=== PATIENT | female | born 1940 | race Caucasian/White ===

== ENCOUNTER → 2016-11-01 | Outpatient (CLI) | payer MEDICARE, OTHER ==
[~2016-11-01] MED LIST: CALCIUM 600 +1 EAC7 PO; COLACE100 MG PO; DELTASONE1 MG PO; ECOTRIN325 MG PO; LEVOTHROID (S125 MCG PO; MIRALAX17 GM PO; NEURONTIN300 MG PO; NORCO 10-325 T1 EACH PO; NORCO 5-325 TA1 EACH PO; OSTEO BI-FLEX1 EACH PO; PREDNISONE5 MG PO; PRESERVISION A1 EACH PO; PREVACID30 M1 PO; PRINIVIL (ZESTR20 MG PO; SINGULAIR10 MG PO; THERA-VITE W/ B1 TAB PO; VESICARE10 MG PO; VITAMIN D-32000 UNI1 PO; ZOCOR40 MG PO
== END | disposition disaster alternative care site (69) ==
LOC: GBCOE 09:30
DX: M81.0 Age-related osteoporosis without current pathological fracture (principal); M85.832 Other specified disorders of bone density and structure, left forearm

== ENCOUNTER 2017-02-22 10:00 | Inpatient (IN) | payer MEDICARE, OTHER ==
[~2017-02-22] VITALS: Ht 154.9 cm; Wt 59.6 kg
--- NOTE | ~2017-02-22 | OR ---
PATIENT'S NAME: [facility] AGE: 76 Y [address] ROOM: [place] [address] LOCATION: [facility] ADMIT DATE: 03/01/2017 OR/Procedure Report DISCHARGE DATE: FAMILY PHYSICIAN: GAUDENCIO LINDSAY MD ATTENDING PHYSICIAN: BEE ROBERTS SURGEON: Bee Roberts MD FREELANCE GRAPHIC DESIGNER: 1. Keith Condon PA-C. 2. Cornelio Alarcon CST/FIRING PIN GAUGER. DATE OF PROCEDURE: 03/01/2017 PRE-OP DIAGNOSIS: Degenerative joint disease right knee. POST-OP DIAGNOSIS: Degenerative joint disease right knee. OPERATION: Right total knee arthroplasty with computer navigation. ANESTHESIA: Spinal anesthesia plus adductor canal block plus periarticular local anesthesia (ropivacaine with epinephrine and Toradol). ESTIMATED BLOOD LOSS: Less than 10 mL. DRAIN: None. SPECIMEN: None. COMPLICATIONS: None. IMPLANT SYSTEM: Renetta Triathlon Size 5 right posterior stabilized femoral component Size 4 universal modular tibial baseplate 11 mm posterior stabilized size 4 X3 tibial polyethylene insert 32 mm Oval X3 patella component (triple pegged). INDICATIONS FOR SURGERY: Ania is a 76-year-old female, who presents with advanced right knee degenerative joint disease and associated severely compromised activities of daily living. The patient has decided to proceed with knee replacement after having been thoroughly counseled regarding the associated risks, benefits, and limitations. We have specifically reviewed the risks and implications of infection, deep venous thrombosis, pulmonary embolism, mortality, neurovascular complications, blood transfusion (and associated potential for disease transmission or transfusion reaction), stiffness, instability, mechanical deterioration of the components (due to wear and or loosening), and the potential need for revision. We have also emphasized the importance of active involvement and compliance with post- operative physical therapy as a means of optimizing range of motion and PATIENT'S NAME: [facility] AGE: 76 Y [address] ROOM: [place] [id number] LOCATION: [facility] ADMIT DATE: 03/01/2017 OR/Procedure Report DISCHARGE DATE: FAMILY PHYSICIAN: GAUDENCIO LINDSAY MD ATTENDING PHYSICIAN: BEE ROBERTS functional recovery. Informed consent has been granted. DESCRIPTION OF PROCEDURE: The patient was positioned supine after administration of anesthesia and prophylactic antibiotics. A well-padded pneumatic tourniquet was placed around the right proximal thigh, and the right lower extremity was prepped and draped with vigilant sterile technique. The patient's name as well as the intended operative side and procedure were confirmed with a verbal time-out involving myself, the circulating nurse, the scrub nurse, and the anesthesiologist. Examination under anesthesia demonstrated a large effusion. There was no erythema. There was no abnormal warmth. There were no active skin lesions or masses. Range of motion under anesthesia was from full extension to 130 degrees of flexion. There was no ligamentous insufficiency. The right lower extremity was elevated and exsanguinated with an Esmarch wrap, and the pneumatic tourniquet was inflated to 300 mmHg. The knee was approached through a longitudinal midline incision. A medial parapatellar arthrotomy was performed and the patella was everted. Examination of the joint space demonstrated a large amount of benign-appearing translucent synovial fluid. There were no loose bodies. The cruciate ligaments were intact. There was full-thickness loss of articular cartilage throughout 90% of the femoral trochlea as well as the entire patella as well as 90% of the medial femoral condyle and the anteromedial 60% of the medial tibial plateau. There was deep erosion of subchondral bone from the lateral two-thirds of the patella with longitudinal striations of eburnated bone yielding a corduroy pattern at the femoral trochlea and the patella. The residual thickness of the lateral facet of the patella measured only 6 mm with a caliper, and the residual thickness of the medial half of the patella measured 14 mm thick. There was extensive chondrocalcinosis at the lateral femoral condyle and moderate chondrocalcinosis at the lateral tibial plateau and lateral meniscus. There was full-thickness fissuring at the medial aspect of the lateral tibial plateau. There was a moderate-sized osteophyte at the lateral tibial plateau. There was extensive maceration of the remnant of the medial meniscus. There was extensive inner perimeter tearing of the lateral meniscus in addition to extensive chondrocalcinosis at the lateral meniscus. Remnants of the menisci and cruciate ligaments were excised. The [employer] navigation femoral tracker was pinned in place at the distal aspect of the femoral trochlea. Absence of motion between the femur and the tracking device was confirmed manually and visually. Femoral osseous landmarks were obtained in order to calibrate the computer navigation system. Landmarks included the center of rotation of the ipsilateral hip, the center-point of the distal femur, the femoral AP axis, 57 points on the medial femoral condyle PATIENT'S NAME: [facility] AGE: 76 Y [address] ROOM: [address] [address] LOCATION: [facility] ADMIT DATE: 03/01/2017 OR/Procedure Report DISCHARGE DATE: FAMILY PHYSICIAN: GAUDENCIO LINDSAY MD ATTENDING PHYSICIAN: BEE ROBERTS articular surface, and 57 points on the lateral femoral condyle articular surface. The [employer] computer navigation system was subsequently utilized to position the distal femoral resection block such that the distal femoral resection was performed perfectly perpendicular to the femoral mechanical axis. The distal femoral resection was performed with a [employer]arm[employer] oscillating saw. The [employer] computer navigation tibial tracker was pinned in place at the anterior aspect of the tibial plateau. Absence of motion between the tibia and the tracking device was confirmed manually and visually. Tibial osseous landmarks were obtained in order to calibrate the computer navigation system. Landmarks included the center-point of the tibial plateau, the AP tibial axis, 57 points on the medial tibial plateau articular surface, 57 points on the lateral tibial plateau articular surface, the medial malleolus, and the lateral malleolus. The [employer] computer navigation system was subsequently utilized to position the proximal tibial resection block such that the proximal tibial resection was performed perfectly perpendicular to the tibial mechanical axis. The proximal tibial resection was performed with a SwarmBuild oscillating saw. Perpendicularity of the tibial resection with respect to the tibial shaft axis was reconfirmed by inserting a spacer- block attached to an extramedullary guide paolo. External rotation of the anterior and posterior femoral resections was set parallel to the epicondylar axis and carefully adjusted in order to create a rectangular flexion gap. The box resection was performed with a reciprocating saw. Anterior and posterior chamfer resections were performed with the oscillating saw. Posterior condyle osteophytes were excised with an osteotome. All other osteophytes were excised with a rongeur. Resection of all remnants of the menisci was reconfirmed. Flexion and extension gaps were confirmed to be symmetric and well balanced with a spacer-block technique. The patella resection was performed with an oscillating saw such that the composite thickness of the reconstructed patella was equivalent to the thickness of the chitina patella. Patella tracking was confirmed to be optimal. A limited lateral retinacular release was required in order to optimize patella tracking. There was a 1 mm ossicle adherent to the lateral retinaculum, and this was excised. All trial components were removed and all prepared osseous surfaces were thoroughly irrigated with pulsatile saline lavage and dried prior to cementing all three components in a single stage using [employer] Simplex cement containing pre-mixed tobramycin. All extruded excess cement was removed. The entire joint space was thoroughly inspected and thoroughly irrigated with bacteriostatic pulsatile saline lavage to assure that there was no residual debris of any sort. PATIENT'S NAME: [facility] AGE: 76 Y [address] ROOM: [address] [address] LOCATION: [facility] ADMIT DATE: 03/01/2017 OR/Procedure Report DISCHARGE DATE: FAMILY PHYSICIAN: GAUDENCIO LINDSAY MD ATTENDING PHYSICIAN: BEE ROBERTS Final range of motion was from full extension (with no passive hyperextension) to 130 degrees of flexion. Patella tracking was reconfirmed to be optimal. There was excellent anteroposterior stability at 90 degrees of flexion. There was less than 1 mm of medial lift-off to valgus stress in full extension. There was less than 1 mm of lateral lift-off to varus stress in full extension. The arthrotomy was closed with multiple simple and [id number] interrupted #1 Vicryl. Subcutaneous tissues were thoroughly re-irrigated with bacteriostatic pulsatile saline lavage. Subcutaneous tissues were re- approximated with simple buried interrupted #0 Vicryl sutures. The skin was closed with simple buried interrupted 2-0 Vicryl sutures followed by surgical juan david. The dressing consisted of Xeroform gauze, 4x4 gauze, ABD pads and two 6-inch Marcial Wraps. There were no intra-operative complications. It should be noted that the physician's medical assistant supervisor played an active, integral role throughout this entire operation. By providing expert retraction, they greatly facilitated and expedited safe and effective exposure of the distal femur, proximal tibia and patella for preparation and implantation of the components. They were also actively involved in the patient's positioning, prepping and draping, as well as wound closure. MD Lety DIAZ /[id number] d: 03/01/17 2250 t: 03/07/17 1311, OPERATIVE SUMMARY
--- NOTE | ~2017-02-22 | DS ---
PATIENT'S NAME: ANIA CERON [facility] AGE: 76 Y [address] ROOM: [place] [address] LOCATION: [facility] ADMIT DATE: 03/01/2017 Discharge Summary DISCHARGE DATE: 03/03/2017 FAMILY PHYSICIAN: Deepthi Cowart MD ATTENDING PHYSICIAN: Navin White PRIMARY DIAGNOSIS: Degenerative joint disease of the right knee. SECONDARY DIAGNOSES: 1. Hypertension. 2. Gastroesophageal reflux disease. 3. Hyperlipidemia. 4. Polymyalgia rheumatica. 5. Hyperthyroidism. PROCEDURE PERFORMED: Right total knee arthroplasty. HISTORY: The patient is a 76-year-old female, who presents with advanced right knee degenerative joint disease and associated severely compromised activities of daily living. The patient has decided to proceed with total knee arthroplasty after having been thoroughly counseled regarding the risks, benefits, limitations and alternatives. Please refer to the outpatient clinic notes and admission history and physical for this patient. HOSPITAL COURSE: The patient underwent a right total knee arthroplasty on 03/01/2017 without complications. Spinal anesthesia plus adductor canal block plus periarticular local anesthesia was utilized. The patient received 24 hours of perioperative prophylactic antibiotics and remained hemodynamically stable, neurovascularly intact throughout the entire hospital course. The postoperative prophylactic deep venous thrombosis prophylaxis consisted of aspirin 325 mg, early mobilization and pneumatic compression devices. Daily physical therapy for gait training, transfer training range of motion and quadriceps isometric exercises were received. The patient progressed well in physical therapy. On the date of discharge, 03/03/2017, the incision at the knee was healing well and showed no signs of infection. DISPOSITION: Home. DISCHARGE ACTIVITY: The patient is to bear weight as tolerated with range of motion and quadriceps isometric exercises as instructed. The operative extremity is to be elevated at least 90% of the day. There is to be sterile 4x4 gauze dressings to the incision daily. Dr. White is to be notified immediately if there are any increased pain, fevers, chills erythema or drainage. PATIENT'S NAME: ANIA CERON [facility] AGE: 76 Y [address] ROOM: [place] [address] LOCATION: [facility] ADMIT DATE: 03/01/2017 Discharge Summary DISCHARGE DATE: 03/03/2017 FAMILY PHYSICIAN: Deepthi Cowart MD ATTENDING PHYSICIAN: Navin White DISCHARGE MEDICATIONS: 1. Aspirin 325 mg 1 tab p.o. daily for 30 days for postoperative DVT prophylaxis. 2. Bennett 5/325 mg 1-2 tabs p.o. every 4 hours p.r.n. for pain. 3. She was then instructed to continue all her other preadmission medications as instructed by her internal medicine physician. FOLLOWUP: Followup appointment is to be with Dr. White's office on 03/08/2017 for her initial postoperative evaluation with x-rays of the right knee and for staple removal at that time. MARISA MÁRQUEZ PA-C FOR MD SUSANA DIAZW/eric /[id number] d: 03/08/17 0851 t: 03/08/17 1401, DISCHARGE SUMMARY
[2017-02-22] MEDS ORDERED: PRINIVIL (ZESTR20 MG PO (10:08)
[2017-02-22] MEDS ORDERED: PREVACID30 M1 PO (10:08)
[2017-02-22] MEDS ORDERED: ZOCOR40 MG PO (10:08)
[2017-02-22] MEDS ORDERED: LEVOTHROID (S125 MCG PO (10:08)
[2017-02-22] MEDS ORDERED: PREDNISONE5 MG PO (10:10)
[2017-02-22] MEDS ORDERED: DELTASONE1 MG PO (10:10)
[2017-02-22] MEDS ORDERED: VESICARE10 MG PO (10:11)
[2017-02-22] MEDS ORDERED: NEURONTIN300 MG PO (10:11)
[2017-02-22] MEDS ORDERED: PRESERVISION A1 EACH PO (10:12)
[2017-02-22] MEDS ORDERED: CALCIUM 600 +1 EAC7 PO (10:12)
[2017-02-22] MEDS ORDERED: THERA-VITE W/ B1 TAB PO (10:12)
[2017-02-22] MEDS ORDERED: VITAMIN D-32000 UNI1 PO (10:13)
[2017-02-22] MEDS ORDERED: OSTEO BI-FLEX1 EACH PO (10:13)
[2017-02-22] MEDS ORDERED: SINGULAIR10 MG PO (10:16)
[2017-02-22] MEDS ORDERED: NORCO 10-325 T1 EACH PO (10:16)
[2017-03-03] MEDS ORDERED: ECOTRIN325 MG PO (12:14)
[2017-03-03] MEDS ORDERED: COLACE100 MG PO (12:16)
[2017-03-03] MEDS ORDERED: MIRALAX17 GM PO (12:18)
[2017-03-03] MEDS ORDERED: NORCO 5-325 TA1 EACH PO (12:32)
== END 2017-03-03 15:15 | disposition disaster alternative care site (69) | DRG 470 ==
LOC: G3N 03-01 08:59
PROVIDERS: ADMIT Orthopaedic Surgery
PROC: 0SRC0J9 Replacement of Right Knee Joint with Synthetic Substitute, Cemented, Open Approach (ICD-10-PCS; principal; 2017-03-01)
PROC: 8E0YXBZ Computer Assisted Procedure of Lower Extremity (ICD-10-PCS; principal; 2017-03-01)
DX: M17.0 Bilateral primary osteoarthritis of knee (principal); G62.9 Polyneuropathy, unspecified; M41.9 Scoliosis, unspecified; I10 Essential (primary) hypertension; E78.5 Hyperlipidemia, unspecified; E03.9 Hypothyroidism, unspecified; M35.3 Polymyalgia rheumatica; K21.9 Gastro-esophageal reflux disease without esophagitis; Z96.643 Presence of artificial hip joint, bilateral; M54.5 Low back pain; M81.0 Age-related osteoporosis without current pathological fracture; Z79.52 Long term (current) use of systemic steroids
CPT/HCPCS: C1713; C1776; J0690; J1885; J2001; J2795; J7120; J7512